=== PATIENT | female | born 1960 | race Caucasian/White ===

== ENCOUNTER 2018-11-21 15:19 | Emergency (ER) | payer SELFPAY ==
[~2018-11-21] VITALS: Ht 165.1 cm; Wt 46.5 kg
[2018-11-21 16:59] LABS: BASOPHILS ABSOLUTE AUTO 0.01 K/mm3 (0.00-0.23); BASOPHILS PERCENT AUTO 0 % (0-2); EOSINOPHILS ABSOLUTE AUTO 0.03 K/mm3 (0.00-0.68); EOSINOPHILS PERCENT AUTO 0 % (0-6); Hemoglobin 15.5 g/dL (11.5-16.0); IMMATURE GRAN ABSOLUTE AUTO 0.05 K/mm3 (0.00-0.10); IMMATURE GRAN PERCENT AUTO 0 % (0-1); LYMPHOCYTES PERCENT AUTO 11 % (21-46); MONOCYTES ABSOLUTE AUTO 1.12 K/mm3 (0.16-1.47); MONOCYTES PERCENT AUTO 8 % (4-13); Mean Corpuscular HGB 28.2 pg (26.0-34.0); Mean Corpuscular HGB Conc 32.3 g/dL (31.5-36.5); Mean Corpuscular Volume 87 fL (80-100); Mean Platelet Volume 8.9 fL (9.1-12.4); NEUTROPHILS ABSOLUTE AUTO 10.69 K/mm3 (1.96-9.15); NEUTROPHILS PERCENT AUTO 80 % (41-73); Platelet Count 457 K/mm3 (150-400); RDW Coefficient Variation 13.2 % (11.7-14.2); RDW Standard Deviation 42.5 fL (35.1-46.3); Red Blood Cell Count 5.49 M/mm3 (3.80-5.20)
[2018-11-21 17:12] LABS: International Normalized Ratio 0.93; Prothrombin Time Results 9.8 Sec (9.7-11.5)
[2018-11-21 17:22] LABS: Alanine Aminotransfer (ALT/SGP 48 U/L (12-78); Albumin, Blood 3.5 g/dL (3.4-5.0); Albumin/Globulin Ratio 0.9 (0.8-1.8); Alk Phos 91 U/L (50-136); Anion Gap 7 mmol/L (6-16); Aspartate Aminotrans (AST/SGOT 40 U/L (12-37); Bilirubin, Total 0.3 mg/dL (0.1-1.0); Blood Urea Nitrogen 23 mg/dL (8-24); CO2, Blood 30 mmol/L (21-32); Chloride, Blood 102 mmol/L (98-108); Creatinine, Blood 0.41 mg/dL (0.40-1.00); Globulin, Blood 3.9 g/dL (2.2-4.0); Glomerular Filtration Rate >60 (60-); Glucose, Blood 122 mg/dL (70-99); Potassium, Blood 3.5 mmol/L (3.5-5.5); Sodium, Blood 139 mmol/L (136-145); Total Protein, Blood 7.4 g/dL (6.4-8.2)
[2018-11-21] MEDS ORDERED: Zithromax250 MG PO (23:02)
[2018-11-21] MEDS ORDERED: Pepcid20 MG PO (23:02)
== END 2018-11-21 23:25 | disposition home or self-care (01) ==
LOC: ER 15:19
PROVIDERS: Physician Assistant
DX: R91.8 Other nonspecific abnormal finding of lung field (principal); R10.13 Epigastric pain; Z88.8 Allergy status to other drugs, medicaments and biological substances; F17.200 Nicotine dependence, unspecified, uncomplicated
CPT/HCPCS: 36415; 71260; 74022; 80053; 82272; 85025; 85610; 93005; 93010; 96360-59; 99284-25; J7030; Q9967

== ENCOUNTER 2018-12-06 07:49 | Day surgery (SDC) | payer OTHER ==
[~2018-12-06 07:49] MED LIST: Pepcid20 MG PO; Zithromax250 MG PO
== END 2018-12-06 22:39 | disposition home or self-care (01) ==
LOC: US 07:49
DX: C96.9 Malignant neoplasm of lymphoid, hematopoietic and related tissue, unspecified (principal); J45.909 Unspecified asthma, uncomplicated; G35 Multiple sclerosis
CPT/HCPCS: 38505; 76942; 88305; 88341; 88342

== ENCOUNTER 2018-12-25 07:46 | Inpatient (IN) | payer OTHER ==
[~2018-12-25] VITALS: Ht 165.1 cm; Wt 43.3 kg
[2018-12-25 08:13] LABS: BASOPHILS ABSOLUTE AUTO 0.02 K/mm3 (0.00-0.23); BASOPHILS PERCENT AUTO 0 % (0-2); EOSINOPHILS PERCENT AUTO 0 % (0-6); Hematocrit 43.9 % (33.0-51.0); IMMATURE GRAN ABSOLUTE AUTO 0.07 K/mm3 (0.00-0.10); IMMATURE GRAN PERCENT AUTO 1 % (0-1); LYMPHOCYTES ABSOLUTE AUTO 0.08 K/mm3 (0.84-5.20); LYMPHOCYTES PERCENT AUTO 1 % (21-46); MONOCYTES ABSOLUTE AUTO 0.16 K/mm3 (0.16-1.47); MONOCYTES PERCENT AUTO 2 % (4-13); Mean Corpuscular HGB 28.1 pg (26.0-34.0); Mean Corpuscular HGB Conc 31.9 g/dL (31.5-36.5); Mean Corpuscular Volume 88 fL (80-100); Mean Platelet Volume 10.9 fL (9.1-12.4); NEUTROPHILS ABSOLUTE AUTO 7.46 K/mm3 (1.96-9.15); NEUTROPHILS PERCENT AUTO 96 % (41-73); Platelet Count 92 K/mm3 (150-400); RDW Coefficient Variation 14.7 % (11.7-14.2); RDW Standard Deviation 46.7 fL (35.1-46.3); Red Blood Cell Count 4.98 M/mm3 (3.80-5.20); White Blood Cell Count 7.79 K/mm3 (4.00-11.30)
[2018-12-25 08:31] LABS: Alanine Aminotransfer (ALT/SGP 92 U/L (12-78); Albumin, Blood 2.7 g/dL (3.4-5.0); Albumin/Globulin Ratio 0.8 (0.8-1.8); Alk Phos 126 U/L (50-136); Anion Gap Unable to Calculate mmol/L (6-16); Aspartate Aminotrans (AST/SGOT 82 U/L (12-37); Bilirubin, Total 1.5 mg/dL (0.1-1.0); Blood Urea Nitrogen 26 mg/dL (8-24); Bun/Creatinine Ratio 73.7 (12.0-20.0); Calcium, Blood 8.5 mg/dL (8.5-10.1); Chloride, Blood 85 mmol/L (98-108); Creatinine, Blood 0.35 mg/dL (0.40-1.00); Globulin, Blood 3.2 g/dL (2.2-4.0); Glomerular Filtration Rate >60 (60-); Glucose, Blood 164 mg/dL (70-99); Sodium, Blood 138 mmol/L (136-145); Total Protein, Blood 5.9 g/dL (6.4-8.2)
[2018-12-25 08:32] LABS: CO2, Blood >45 mmol/L (21-32)
[2018-12-25 08:33] LABS: Potassium, Blood 2.1 mmol/L (3.5-5.5)
[2018-12-25] MEDS ORDERED: FURO20 PO (10:45)
[2018-12-25] MEDS ORDERED: DEXA4 PO (10:51)
--- NOTE | 2018-12-25 11:00 | NUR ---
Met with Simona in ER room 19 this morning. Simona is a 58 year old with a history of COPD and a new lung cancer diagnosis with brain mets. She lives with her sister, Radha, in [place]. She has recently been staying in a local hotel receiving radiation treatments -. She has been having increasing SOB and a cough. She was started on a z-pack and prednisone prior to her ER visit. She reports about a 30 pound weight loss in the last month or so. She reports her appetite has been decreased recently, however she is hungry and requesting a pudding. Chocolate pudding given to pt and she is able to eat it without any nausea. She states that she isn't sure if and when she will start chemotherapy. She confirmed her do not intubate status, but was not up to a dicussion on code status and filling out a POLST form. She requests to do this in the next day or so. Will allow her to rest as she reports she is fatigued and doesn't sleep more than a couple hours at a time. Plan is for pt to be admitted to hospitalist service. PC to follow for POLST, symptom managment and advanced care planning.
[2018-12-25] MEDS ORDERED: GI COCKTAIL PO (13:42)
[2018-12-25 15:44] LABS: Adenovirus Not Detected (NOT DETECT); Bordetella pertussis Not Detected (NOT DETECT); Chlamydophila pneumoniae Not Detected (NOT DETECT); Coronavirus 229E Not Detected (NOT DETECT); Coronavirus HKU1 Not Detected (NOT DETECT); Coronavirus NL63 Not Detected (NOT DETECT); Coronavirus OC43 Not Detected (NOT DETECT); Human Metapneumovirus Not Detected (NOT DETECT); Human Rhinovirus/Enterovirus Not Detected (NOT DETECT); Influenza A Not Detected (NOT DETECT); Influenza A/2009-H1 Not Detected (NOT DETECT); Influenza A/H1 Not Detected (NOT DETECT); Influenza A/H3 Not Detected (NOT DETECT); Influenza B Not Detected (NOT DETECT); Mycoplasma pneumoniae Not Detected (NOT DETECT); Parainfluenza Virus 1 Not Detected (NOT DETECT); Parainfluenza Virus 2 Not Detected (NOT DETECT); Parainfluenza Virus 3 Not Detected (NOT DETECT); Parainfluenza Virus 4 Not Detected (NOT DETECT); Respiratory Syncytial Virus Not Detected (NOT DETECT)
--- NOTE | 2018-12-25 18:31 | NUR ---
ASSUMED CARE OF PT AT APPROIXMATELY 1330. VS STABLE. O2 SATS >90% ON RA. HR NSR TO SINUS TACH WITH A RATE 90'S TO 110'S. PT DENIES ANY PAIN. EDEMA TO BLE. PT STATES SHE HAS PROGRESSIVELY GOTTEN WEAKER THE LAST COUPLE OF WEEKS AND LOST WEIGHT. NS INFUSING PER ORDERS ALONG WITH KCL. WILL CONTINUE TO MONITOR AND REPORT TO ONCOMING RN. CALL LIGHT IN REACH.
--- NOTE | 2018-12-26 01:05 | NUR ---
PATIENT REPORTS UNABLE TO SLEEP AND REQUEST A SLEEP AIDE. HOSPITALIST NOTIFIED AND DR DIETRICH ORDERED AMBIEN 5 MG PRN BEDTIME FOR IMSOMNIA.
[2018-12-26 04:04] LABS: BASOPHILS ABSOLUTE AUTO 0.01 K/mm3 (0.00-0.23); BASOPHILS PERCENT AUTO 0 % (0-2); EOSINOPHILS PERCENT AUTO 0 % (0-6); Hematocrit 37.3 % (33.0-51.0); Hemoglobin 11.8 g/dL (11.5-16.0); IMMATURE GRAN PERCENT AUTO 1 % (0-1); LYMPHOCYTES ABSOLUTE AUTO 0.06 K/mm3 (0.84-5.20); LYMPHOCYTES PERCENT AUTO 1 % (21-46); MONOCYTES ABSOLUTE AUTO 0.19 K/mm3 (0.16-1.47); MONOCYTES PERCENT AUTO 2 % (4-13); Mean Corpuscular HGB Conc 31.6 g/dL (31.5-36.5); Mean Corpuscular Volume 88 fL (80-100); Mean Platelet Volume 11.1 fL (9.1-12.4); NEUTROPHILS ABSOLUTE AUTO 8.21 K/mm3 (1.96-9.15); NEUTROPHILS PERCENT AUTO 96 % (41-73); Platelet Count 110 K/mm3 (150-400); RDW Coefficient Variation 14.8 % (11.7-14.2); RDW Standard Deviation 47.3 fL (35.1-46.3); Red Blood Cell Count 4.22 M/mm3 (3.80-5.20); White Blood Cell Count 8.57 K/mm3 (4.00-11.30)
[2018-12-26 04:23] LABS: Alanine Aminotransfer (ALT/SGP 74 U/L (12-78); Albumin, Blood 2.3 g/dL (3.4-5.0); Albumin/Globulin Ratio 0.9 (0.8-1.8); Alk Phos 105 U/L (50-136); Anion Gap 3 mmol/L (6-16); Aspartate Aminotrans (AST/SGOT 60 U/L (12-37); Bilirubin, Total 1.3 mg/dL (0.1-1.0); Blood Urea Nitrogen 25 mg/dL (8-24); Bun/Creatinine Ratio 76.5 (12.0-20.0); CO2, Blood 43 mmol/L (21-32); Chloride, Blood 93 mmol/L (98-108); Creatinine, Blood 0.33 mg/dL (0.40-1.00); Globulin, Blood 2.7 g/dL (2.2-4.0); Glomerular Filtration Rate >60 (60-); Glucose, Blood 158 mg/dL (70-99); Potassium, Blood 3.4 mmol/L (3.5-5.5); Sodium, Blood 139 mmol/L (136-145)
--- NOTE | 2018-12-26 04:43 | NUR ---
POSITIVE BLOOD CULTURE: [facility] CALLED TO LET THEM KNOW PT IS ON LEVAQUIN 500 MG PO AND IV ROCHEPH. PHARMACY REPORTS TO CALL HOSPITALIST; DR DIETRICH NOTIFIED WITH RESULTS AND ANTIBIOTICS AND APPROVES.
--- NOTE | 2018-12-26 04:55 | NUR ---
SHIFT SUMMARY PATIENT HAD NO ACUTE CHANGES OBSERVED THIS SHIFT. AXOX 3 WITH A ONE PERSON ASSIST TO BSC. CACHECTIC WOMAN. PATIENT DENIES PAIN AND N/V. ON CONTINUOUS PULSE OXIMETRY STATING >90%. PATIENT REQUESTED SLEEP MEDICATION AND HOSPITLAIST DR DIETRICH ORDERD AMBIEN 5 MG PO PRN BEDTIME. PIV REMAINS INTACT. NS INFUSING AND KCL FINISHED BAG 11/21. POCKET SETTER LOCKSTITCH REPORTS ST 112. PRODUCTIVE COUGH. [facility] REPORTED TO DR DIETRICH, SEE NOTE. CALL LIGHT IN REACH. BED IN LOWEST POSITION. WILL CONTINUE TO MONITOR UNTIL DAY SHIFT NURSE ASSUMES CARE.
[2018-12-26 09:01] LABS: International Normalized Ratio 1.42; Prothrombin Time Results 14.6 Sec (9.7-11.5)
--- NOTE | 2018-12-26 13:30 | NUR ---
PT TAKEN BY WHEELCHAIR TO IMAGING FOR CT AND THORACENTESIS. WILL AWAIT RETURN.
--- NOTE | 2018-12-26 14:35 | NUR ---
PT RETURNED FROM IMAGING AND THORACENTESIS. PER REPORT 900ML REMOVED FROM RIGHT SIDE. WILL CONINTUE TO MONITOR. VS STABLE AT THIS TIME.
--- NOTE | 2018-12-26 17:52 | NUR ---
SHIFT SUMMARY PT ALERT AND ORIENTED. VS STABLE. 02 SATS HAVE REMAINED ABOVE 90% ON RA. HR SINUS TACH IN THE 100'S TO 120'S. PRODUCTIVE COUGH THROUGHOUT SHIFT WITH THICK SPUTUM THAT RANGES FROM BROWN TO BLOOD TINGED. THORACENTESIS DONE TODAY. PT ANXIOUS AT TIMES. NS INFUSING PER ORDERS. FAMILY AT BEDSIDE. EGG CRATE PLACED ON BED FOR COMFORT AND MEPILEX APPLIED TO COCCYX FOR PREVENTION. WILL CONTINUE TO MONITOR AND REPORT TO ONCOMING RN. CALL LIGHT IN REACH.
[2018-12-27 04:02] LABS: BASOPHILS ABSOLUTE AUTO 0.02 K/mm3 (0.00-0.23); BASOPHILS PERCENT AUTO 0 % (0-2); EOSINOPHILS PERCENT AUTO 0 % (0-6); Hematocrit 37.7 % (33.0-51.0); IMMATURE GRAN ABSOLUTE AUTO 0.15 K/mm3 (0.00-0.10); IMMATURE GRAN PERCENT AUTO 2 % (0-1); LYMPHOCYTES PERCENT AUTO 1 % (21-46); MONOCYTES ABSOLUTE AUTO 0.18 K/mm3 (0.16-1.47); MONOCYTES PERCENT AUTO 2 % (4-13); Mean Corpuscular HGB 27.3 pg (26.0-34.0); Mean Corpuscular HGB Conc 31.8 g/dL (31.5-36.5); Mean Corpuscular Volume 86 fL (80-100); NEUTROPHILS ABSOLUTE AUTO 8.79 K/mm3 (1.96-9.15); NEUTROPHILS PERCENT AUTO 95 % (41-73); Platelet Count 115 K/mm3 (150-400); RDW Coefficient Variation 15.2 % (11.7-14.2); RDW Standard Deviation 46.5 fL (35.1-46.3); White Blood Cell Count 9.24 K/mm3 (4.00-11.30)
[2018-12-27 04:31] LABS: Alanine Aminotransfer (ALT/SGP 79 U/L (12-78); Albumin, Blood 2.1 g/dL (3.4-5.0); Albumin/Globulin Ratio 0.9 (0.8-1.8); Alk Phos 100 U/L (50-136); Anion Gap 3 mmol/L (6-16); Aspartate Aminotrans (AST/SGOT 60 U/L (12-37); Bilirubin, Total 1.6 mg/dL (0.1-1.0); Blood Urea Nitrogen 20 mg/dL (8-24); Bun/Creatinine Ratio 73.3 (12.0-20.0); CO2, Blood 38 mmol/L (21-32); Calcium, Blood 7.8 mg/dL (8.5-10.1); Chloride, Blood 94 mmol/L (98-108); Creatinine, Blood 0.27 mg/dL (0.40-1.00); Globulin, Blood 2.4 g/dL (2.2-4.0); Glomerular Filtration Rate >60 (60-); Glucose, Blood 145 mg/dL (70-99); Potassium, Blood 3.3 mmol/L (3.5-5.5); Sodium, Blood 135 mmol/L (136-145); Total Protein, Blood 4.5 g/dL (6.4-8.2)
--- NOTE | 2018-12-27 05:22 | NUR ---
SHIFT SUMMARY PT HAS REMAINED AOX4 THROUGHOUT SHIFT. PLEASANT AND COOPERATIVE WITH CARE. PT WITH ONE EPISODE OF HYPERTENSION THAT DECREASED WITH PRN MEDICATION, ALL OTHER VSS. PT CONTINUES TO AMBULATE WITH STANDBY ASSIST TO THE BEDSIDE COMMODE. PT REMAINS VERY WEAK AND HAS SLIGHT DYSPNEA ON EXERTION. O2 SATS HAVE REMAINED >90% ON RA WHILE AT REST AND WITH AMBULATION. PT WITH OCCASIONAL PRODUCTIVE COUGH OF THICK, BROWN SPUTUM. PT EXPRESSING ANXIETY ABOUT UPCOMING CHEMOTHERAPY TREATMENT AND THE EFFECTIVENESS OF TREATMENT. THERAPEUTIC COMMUNICATION AND REASSURANCE PROVIDED, PT APPEARED TO BE LESS ANXIOUS AFTER EXPRESSING CONCERNS. MEPILEX IN PLACE TO COCCYX AND LOWER BACK TO PREVENT BREAKDOWN. NO OTHER CHANGES FROM INITIAL ASSESSMENT, WILL CONTINUE TO MONITOR AND REPORT TO ONCOMING SHIFT RN. BED IN LOW POSITION, CALL LIGHT INREACH.
[2018-12-27] MEDS ORDERED: PRED10 PO (10:18)
[2018-12-27] MEDS ORDERED: ACET325 PO (10:19)
[2018-12-27] MEDS ORDERED: ALBU90OI INH (10:20)
[2018-12-27] MEDS ORDERED: BISA10S PR (10:21)
[2018-12-27] MEDS ORDERED: CEFP200 PO (10:23)
[2018-12-27] MEDS ORDERED: DOCU100 PO (10:27)
[2018-12-27] MEDS ORDERED: ALBU3IS INH (10:30)
[2018-12-27] MEDS ORDERED: LORA.5 PO (11:10)
[2018-12-27] MEDS ORDERED: LEVFLO500 PO (11:11)
[2018-12-27] MEDS ORDERED: NICO21TP TOP (11:12)
[2018-12-27] MEDS ORDERED: POTCHL20ER PO ×2 (11:13→11:14)
[2018-12-27] MEDS ORDERED: ONDA4ODT MM (11:14)
[2018-12-27] MEDS ORDERED: MELA3 PO (11:15)
--- NOTE | 2018-12-27 14:30 | NUR ---
DISCHARGE INSTRUCTIONS PROVIDED. PT EVALUATED BY PT/OT WITH HOME RECOMMENDATIONS AND EDUCATION SEE ASSESSMENTS. EMPLOYEE RELATIONS ASSISTANT WORKING WITH PT FOR HOME CARE NEEDS AND EQUIPMENT. ALL QUESTIONS ANSWERED. PT EDUCATED ABOUT NEW MEDICATIONS AND MEDICATIONS TO STOP TAKING. IV REMOVED AND INTACT. PT'S CAREGIVER IN ROOM AND EDUCATED WELL. ALL QUESTIONS ANSWERED. PT TAKEN OUT BY WHEELCHAIR.
== END 2018-12-27 14:32 | disposition home health service (06) | DRG 189 ==
LOC: ER 07:46 → PCU 09:57
PROVIDERS: Emergency Medicine; ADMIT Family Medicine
PROC: 0W993ZZ Drainage of Right Pleural Cavity, Percutaneous Approach (ICD-10-PCS; principal; 2018-12-26)
DX: J96.21 Acute and chronic respiratory failure with hypoxia (principal); E43 Unspecified severe protein-calorie malnutrition; J44.1 Chronic obstructive pulmonary disease with (acute) exacerbation; C34.01 Malignant neoplasm of right main bronchus; R64 Cachexia; C79.31 Secondary malignant neoplasm of brain; J91.0 Malignant pleural effusion; Z68.1 Body mass index [BMI] 19.9 or less, adult; J96.22 Acute and chronic respiratory failure with hypercapnia; F17.210 Nicotine dependence, cigarettes, uncomplicated; E87.6 Hypokalemia; D69.6 Thrombocytopenia, unspecified; R62.7 Adult failure to thrive; R74.0 Nonspecific elevation of levels of transaminase and lactic acid dehydrogenase [LDH]; Z79.52 Long term (current) use of systemic steroids; Z88.0 Allergy status to penicillin; Z79.899 Other long term (current) drug therapy
CPT/HCPCS: 32555; 36415; 71045; 71046; 71260; 74177; 80053; 83605; 84132; 84145; 85025; 85610; 85730; 87040; 87070; 87106; 87205; 87486; 87581; 87633; 87798; 93005; 93010; 94640; 94644; 94760; 94762; 96361; 96365; 96375; 97116; 97161; 97166; 97530; 99285-25; J0360; J0696; J1650; J2920; J3480; J7030; Q9967

== ENCOUNTER 2018-12-31 21:37 | Emergency (ER) | payer OTHER ==
[~2018-12-31] VITALS: Ht 165.1 cm; Wt 54.4 kg
[~2018-12-31 21:37] MED LIST changes: +ACET325 PO; +ALBU3IS INH; +ALBU90OI INH; +BISA10S PR; +CEFP200 PO; +DEXA4 PO; +DOCU100 PO; +FURO20 PO; +GI COCKTAIL PO; +LEVFLO500 PO; +LORA.5 PO; +MELA3 PO; +NICO21TP TOP; +ONDA4ODT MM; +POTCHL20ER PO; +PRED10 PO
== END 2019-01-01 08:30 | disposition home or self-care (01) ==
LOC: ER 21:37
DX: S30.810A Abrasion of lower back and pelvis, initial encounter (principal); R53.1 Weakness; J44.9 Chronic obstructive pulmonary disease, unspecified; C34.90 Malignant neoplasm of unspecified part of unspecified bronchus or lung; C79.31 Secondary malignant neoplasm of brain; Z88.0 Allergy status to penicillin; Z79.52 Long term (current) use of systemic steroids; Z79.899 Other long term (current) drug therapy; Z87.891 Personal history of nicotine dependence; X58.XXXA Exposure to other specified factors, initial encounter
CPT/HCPCS: 99283